=== PATIENT | male | born 2000 | race Caucasian/White ===

== ENCOUNTER 2018-05-21 11:48 | Emergency (ER) | payer OTHER ==
[~2018-05-21] VITALS: Ht 180.3 cm; Wt 83.9 kg
[~2018-05-21 11:48] MED LIST: ADVAIR 100-501 EACH INH; AUGMENTIN 875-1 EAC1 ORAL; PROAIR HFA8.5 GM INH
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
[2018-05-21 12:35] VITALS: BP 113/60
[2018-05-21] MEDS: Ketorolac 30mg Inj IM ONE ×2 (12:37→12:38)
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
[2018-05-21] MEDS ORDERED: IBUPROFEN600 MG ORAL (13:58)
[2018-05-21 14:05] VITALS: BP 117/80
== END 2018-05-21 14:05 | disposition home or self-care (01) ==
LOC: EMR 12:24
DX: S02.31XA Fracture of orbital floor, right side, initial encounter for closed fracture (principal); S02.81XA Fracture of other specified skull and facial bones, right side, initial encounter for closed fracture; Y04.0XXA Assault by unarmed brawl or fight, initial encounter; Y93.9 Activity, unspecified; Y92.9 Unspecified place or not applicable; J45.909 Unspecified asthma, uncomplicated
CPT/HCPCS: 70486; 99284

== ENCOUNTER 2018-09-01 13:49 | Emergency (ER) | payer OTHER ==
[~2018-09-01] VITALS: Ht 180.3 cm; Wt 81.6 kg
[~2018-09-01 13:49] MED LIST changes: +IBUPROFEN600 MG ORAL
[2018-09-01] MEDS ORDERED: TYLENOL EXTRA500 MG ORAL (14:12)
[2018-09-01] MEDS ORDERED: ZOFRAN4 M3 ORAL (14:12)
--- NOTE | 2018-09-01 14:13 | Emergency Room Report ---
History of Present Illness General Chief Complaint: Nausea, Vomiting, and Diarrhea Source: Patient Present Illness HPI 18-year-old male patient presents ER complaining of vomiting and diarrhea for the past 3 days. Reports symptoms have been intermittent since that time. Reports has been able to tolerate by mouth foods and fluids intermittently but sometimes "throws them up again". Reports took Tylenol once yesterday for pain. Denies abdominal pain. Denies fever, chest pain, shortness of breath. Denies blood in vomit or stool. Denies recent travel. Denies history of GI problems. Reports sick contacts at home. Allergies: Coded Allergies: No Known Allergies (Unverified , 08/09/13) Patient History Past Medical History: see triage record Reviewed Nursing Documentation: PMH: Agreed; PSxH: Agreed Nursing Documentation-PMH Past Medical History: No History, Except For Hx Cardiac Problems: No Hx Asthma: Yes Hx Gastrointestinal Problems: No Hx Neurological Problems: No Review of Systems All Other Systems: negative except mentioned in HPI Physical Exam Vital Signs Date Time Temp Pulse Resp B/P (MAP) Pulse Ox O2 Delivery O2 Flow Rate FiO2 09/01/18 13:51 99.3 85 17 128/71 98 Room Air Sp02 EP Interpretation: reviewed, normal General Appearance: well appearing, no apparent distress, alert, GCS 15, non- toxic Head: normocephalic, atraumatic Eyes: bilateral eye normal inspection, bilateral eye PERRL ENT: hearing grossly normal, normal pharynx, no angioedema, normal voice, uvula midline, moist mucus membranes Neck: full range of motion Respiratory: lungs clear, normal breath sounds, no rhonchi, no respiratory distress, no accessory muscle use, no wheezing, speaking full sentences Cardiovascular #1: regular rate, rhythm, no edema Gastrointestinal: non tender, soft, no mass, non-distended, no guarding, no rebound, other - negative Callaway, negative obturator, negative Rovsing Genitourinary: no CVA tenderness Musculoskeletal: back normal, digits/nails normal, gait/station normal, normal range of motion, non-tender Neurologic: alert, oriented x3, responsive, motor strength/tone normal, sensory intact Psychiatric: mood/affect normal Skin: no rash Lymphatic: no adenopathy Medical Decision Making PA Attestation Dr. Oscar is my supervising Physician whom patient management has been discussed with. Diagnostic Impression: Primary Impression: Nausea, vomiting, and diarrhea ER Course Pt. presents to the ED c/o vomiting and diarrhea. Ddx considered but are not limited to viral syndrome, gastritis, enteritis, food poisoning, GERD, reflux. Vital signs: are WNL, pt. is afebrile at discharge. ordered zofran. ED COURSE: Physical exam benign, no abdominal TTP, negative Callaway sign, negative Rovsing, negative obturator, low suspicion for appendicitis or cholecystitis, does not require labs or imaging at this time. No fever, no blood in stool, no recent travel or hospitalizations, does not require abx treatment at this time. No signs of dehydration, moist mucus membranes, cap refill <2seconds, normal skin turgor. Patient history consistent with likely viral syndrome vs food poisoning, will provide Zofran in the ER. . Patient instructed on BRAT diet. Patient instructed to remain hydrated, drink plenty of fluids. Clear liquid diet. Patient questions asked and answered. Patient states understanding and agreement to treatment plan. ER precautions given, return to ER for new or worsening of symptoms. Patient able tolerate by mouth fluids in the ER prior to discharge. DISCHARGE: Rx provided for Tylenol for pain symptoms Rx provided for zofran At this time pt. is stable for d/c to home. Patient is resting comfortably, laughing, in no acute distress, nontoxic appearing. Will provide printed patient care instructions, and any necessary prescriptions. Care plan and follow up instructions have been discussed with the patient prior to discharge. Patient instructed to followup with PCP in 3-5 days. Patient reports understanding and agreement to treatment plan. Patient questions asked and answered. ER precautions given; patient instructed to return to ER for new or worsening of symptoms including but not limited to fever, intractable vomiting, severe abdominal pain, blood in stool. - Please note that this Emergency Department Report was dictated using North Plains[employer]lettering machine operator technology software, occasionally this can lead to erroneous entry secondary to interpretation by the dictation equipment. Last Vital Signs Date Time Temp Pulse Resp B/P (MAP) Pulse Ox O2 Delivery O2 Flow Rate FiO2 09/01/18 13:51 99.3 85 17 128/71 98 Room Air Status: improved Disposition: HOME, SELF-CARE Condition: Stable Scripts Acetaminophen* (TYLENOL EXTRA STRENGTH*) 500 Mg Tablet 500 MG ORAL Q8H PRN for Prn Headache/Temp > 101, #30 TAB 0 Refills Prov: Berny Roach 09/01/18 Ondansetron* (ZOFRAN*) 4 Mg Tablet 4 MG ORAL Q6H PRN for Nausea & Vomiting, #10 TAB Prov: Berny Roach 09/01/18 Patient Instructions: Diarrhea, Adult, Ljhl-[id number], Food Choices to Help Relieve Diarrhea, Adult, Nausea and Vomiting, Adult, [id number] Additional Instructions: Followup with primary care provider in 3 -5 days. Avoid spicy foods, avoid dairy foods. BRAT diet: bananas, rice, apple sauce, toast. Consider Imodium for diarrhea and Tylenol for pain symptoms. Take medications as directed. Patient questions asked and answered. ER precautions given, patient instructed to return to ER immediately for any new or worsening of symptoms. Berny Roach Sep 01, 2018 14:12
[2018-09-01] MEDS ORDERED: Acetaminophen 500mg (ES) tab ORAL ONE (14:15)
[2018-09-01 14:44] VITALS: BP 132/75
== END 2018-09-01 14:44 | disposition home or self-care (01) ==
LOC: EMR 14:23
DX: R11.2 Nausea with vomiting, unspecified (principal); R19.7 Diarrhea, unspecified; J45.909 Unspecified asthma, uncomplicated
CPT/HCPCS: 99283

== ENCOUNTER 2019-10-16 13:24 | Emergency (ER) | payer OTHER ==
[~2019-10-16] VITALS: Ht 177.8 cm; Wt 83.9 kg
[~2019-10-16 13:24] MED LIST changes: +TYLENOL EXTRA500 MG ORAL; +VERTICALM25 MG ORAL; +ZOFRAN4 M3 ORAL
[2019-10-16 13:36] VITALS: BP 123/45
--- NOTE | 2019-10-16 14:07 | NUR ---
ED Nurse Note:pt. came with flu like symptoms from home no current fever
--- NOTE | 2019-10-16 14:24 | Emergency Room Report ---
History of Present Illness General Chief Complaint: Flu Like Symptoms Source: Patient Present Illness HPI 19-year-old male presents to the emergency department complaining of body aches , fatigue, fevers, chills, sore throat that is 6 out of 10 severity pain, and intermittent cough x 2 days. Patient reports he has a history of asthma however he does not feel that his symptoms are very much exacerbated. Patient denies neck pain/stiffness, headache or photophobia. He did not take this years flu vaccine but he is vaccinated otherwise. Denies recent travel or ill contacts with similar symptoms. Has been taking [id number] cough and cold remedies with some mild relief. Denies CP, Palpitations, dizziness, N/V/C/ D. Allergies: Coded Allergies: No Known Allergies (Unverified , 08/09/13) Patient History Past Medical History: see triage record Past Surgical History: none Pertinent Family History: none Reviewed Nursing Documentation: PMH: Agreed; PSxH: Agreed Nursing Documentation-PMH Past Medical History: No Stated History Hx Cardiac Problems: No Hx Asthma: Yes Hx Gastrointestinal Problems: No Hx Neurological Problems: No Review of Systems All Other Systems: negative except mentioned in HPI Physical Exam Vital Signs Date Time Temp Pulse Resp B/P (MAP) Pulse Ox O2 Delivery O2 Flow Rate FiO2 10/16/19 13:27 98.1 59 16 123/45 (71) 97 Room Air Sp02 EP Interpretation: reviewed, normal General Appearance: no apparent distress, alert, GCS 15, non-toxic Head: normocephalic, atraumatic Eyes: bilateral eye normal inspection, bilateral eye PERRL ENT: hearing grossly normal, normal voice, TMs + canals normal, uvula midline, tonsillar swelling, pharyngeal erythema, other - No exudates. Neck: full range of motion, no meningismus Respiratory: chest non-tender, lungs clear, normal breath sounds, no respiratory distress, no accessory muscle use, no wheezing, speaking full sentences Cardiovascular #1: regular rate, rhythm Gastrointestinal: non tender, soft Musculoskeletal: normal range of motion, gait/station normal, non-tender Neurologic: alert, motor strength/tone normal, oriented x3, sensory intact, responsive, speech normal Psychiatric: judgement/insight normal Skin: no rash, normal inspection Lymphatic: no adenopathy Medical Decision Making PA Attestation Dr. Woods is my supervising Physician whom patient management has been discussed with. Diagnostic Impression: Primary Impression: Acute viral syndrome ER Course 19-year-old male presents to the emergency department complaining of body aches , fatigue, fevers, chills, sore throat that is 6 out of 10 severity pain, and intermittent cough x 2 days. Patient reports he has a history of asthma however he does not feel that his symptoms are very much exacerbated. Patient denies neck pain/stiffness, headache or photophobia. He did not take this years flu vaccine but he is vaccinated otherwise. Denies recent travel or ill contacts with similar symptoms. Has been taking [id number] cough and cold remedies with some mild relief. Denies CP, Palpitations, dizziness, N/V/C/ D. Ddx considered but are not limited to URI, pneumonia, PE, strep pharyngitis, meningitis, influenza, OM/OE just to name a few. Vital signs: Pt. is afebrile, the remaining VS are WNL H&PE are most consistent with Viral Syndrome suspicious for Influenza will treat clinically - no meningeal signs, Lungs are clear and oropharynx is not involved, no evidence of bacterial infection at this time. ORDERS: none required at this time, the diagnosis is clinical ED INTERVENTIONS: None required at this time. --PT. EDUCATION: --I discussed with this patient that I will be prescribing Tamiflu which is an antiviral. This medication is not always covered by insurance and is not always available at pharmacies. I educated patient that this medication has been shown to reduce symptoms by 1 day, and if unable to obtain there is no alternative, and to continue conservative treatment. DISCHARGE: At this time pt. is stable for d/c to home. Will provide printed patient care instructions, and any necessary prescriptions. Care plan and follow up instructions have been discussed with the patient prior to discharge. Last Vital Signs Date Time Temp Pulse Resp B/P (MAP) Pulse Ox O2 Delivery O2 Flow Rate FiO2 10/16/19 13:36 59 16 Room Air 10/16/19 13:36 98.1 123/45 97 Disposition: HOME, SELF-CARE Condition: Stable Departure Forms: Return to Work Return to Work Date: Oct 19, 2019 Work Restrictions: None Other Restrictions: May return Sooner if Symptoms have resolved. Return to Full Activity: Oct 19, 2019 Patient Instructions: Upper Respiratory Infection, Adult, [id number] Additional Instructions: Take medications as directed. Follow up with a Primary Care Provider in 3-5 days, even if your symptoms have resolved. Return sooner to ED if new symptoms occur, or current symptoms become worse. - Please note that this Emergency Department Report was dictated using [employer]case[employer] machine operator plastic zipper technology software, occasionally this can lead to erroneous entry secondary to interpretation by the dictation equipment. Theresa Dangelo Oct 16, 2019 14:24
[2019-10-16] MEDS ORDERED: TYLENOL EXTRA500 MG ORAL (14:25)
[2019-10-16] MEDS ORDERED: TAMIFLU75 MG ORAL (14:25)
[2019-10-16 15:00] VITALS: BP 123/45
--- NOTE | 2019-10-16 15:00 | NUR ---
ER DISCHARGE NOTE: Patient is cleared to be discharged per ERMD, pt is aox4, on room air, with stable vital signs. pt was given dc and prescription instructions, pt was able to verbalize understanding, pt is able to ambulate with steady gait. pt took all belongings.
== END 2019-10-16 15:14 | disposition home or self-care (01) ==
LOC: EMR 13:55
DX: B34.9 Viral infection, unspecified (principal); J45.909 Unspecified asthma, uncomplicated
CPT/HCPCS: 99281